=== PATIENT | male | born 1955 | race Hispanic/Latino ===

== ENCOUNTER → 2018-12-08 | Outpatient (CLI) | payer OTHER | END | disposition home or self-care (01) | LOC: OIH 09:37 | PROVIDERS: ATTEND Family Medicine | DX: M19.012 Primary osteoarthritis, left shoulder (principal); M19.011 Primary osteoarthritis, right shoulder; M47.815 Spondylosis without myelopathy or radiculopathy, thoracolumbar region; R03.0 Elevated blood-pressure reading, without diagnosis of hypertension; M25.562 Pain in left knee; M25.561 Pain in right knee; Z87.891 Personal history of nicotine dependence | CPT/HCPCS: 71046; 73030; 73560 ==

== ENCOUNTER → 2021-07-28 | Outpatient (CLI) | payer OTHER, MEDICARE | END | disposition home or self-care (01) | LOC: OIH 10:31 | PROVIDERS: ATTEND Family Medicine | DX: M17.0 Bilateral primary osteoarthritis of knee (principal) ==

== ENCOUNTER → 2024-05-29 | Outpatient (CLI) | payer OTHER, MEDICARE | END | disposition home or self-care (01) | LOC: OIH 10:40 | PROVIDERS: ATTEND Family Medicine | DX: Z01.811 Encounter for preprocedural respiratory examination (principal) | CPT/HCPCS: 71046 ==

== ENCOUNTER → 2025-03-15 | Outpatient (CLI) | payer OTHER, MEDICAID ==
[~2025-03-15] MED LIST: REGADENOSON 0.4 MG/5 ML PF SYG IVP ONE
--- NOTE | 2025-03-15 17:39 | HMCSR ---
APPROVED REPORT TEST INDICATIONS Dyspnea , Chest Pain The imaging protocol used to acquire images was Rest Tc-99m/stress Tc-99m 1 day Consent: The procedure was explained and understood by the patient. Informerd consent was witnessed THUY LoganMT First, low dose rest was performed then high dose stress. RESTING DATA: The resting ekg shows: NSR Rest SPECT myocardial perfusion imaging was performed in supine position minutes following the intra venous injection of 11 mCi of Tc-99 Sestamibi. Time of rest injection: 09 Date: 03/15/2025 PHARMACOLOGIC STRESS: Pharmacologic stress test was performed by injecting regadenoson 0.4 mg IV push followed by the intra venous injection of 30 mCi of Tc-99 Sestamibi. Time of stress injection: 1036 Date: 03/15/2025 Heart Rate at time of stress injection: 59 bpm. The images were gated to evaluate regional wall motion and calculate left ventricular ejection fracti on. STRESS DETAILS Reason for Termination: Infusion complete Stress Symptoms: Chest Pain Max HR Achieved: 73 bpm % of APMHR Achieved: 57 Max Blood Pressure: 164/63 mmHg Stress ECG: NSR Arrhythmia: No. Study quality was good. Artifact: motion artifact LEFT VENTRICLE Size: The left ventricular size is normal. Systolic Function:The left ventricular systolic function is normal. Wall Motion: No regional wall motion abnormalities noted. The left ventricular ejection fraction was calculated to be 67%.TID = . LV PERFUSION The rest and stress images show normal perfusion. No reversible ischemia or areas of infarct were se en. No obvious TID. RV Size/Shape The right ventricle was not well-visualized. IMPRESSION Stress ECG Summary: Nondiagnostic Conclusion Normal Lexiscan stress test. The rest and stress images show normal perfusion. No reversible ischemia or areas of infarct were se en. No obvious TID. The left ventricular size is normal. No regional wall motion abnormalities noted. The left ventricula r systolic function is normal. Post-stress LVEF was calculated to be 67%. Stress ECG Summary: Nondiagnostic Study indicates a low risk for cardiovascular events.
== END | disposition home or self-care (01) ==
LOC: RAH 08:44
PROVIDERS: ATTEND Family Medicine
DX: R06.02 Shortness of breath (principal); R07.9 Chest pain, unspecified
CPT/HCPCS: 78452; 93017; J2785; A9500 ×2